=== PATIENT | male | born 1970 | race Caucasian/White ===

== ENCOUNTER 2018-09-12 20:41 | Emergency (ER) | payer OTHER ==
[2018-09-12] MEDS ORDERED: Ketorolac 60 MG/2 ML SDV IM ONE (21:01)
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
[2018-09-12 21:40] VITALS: BP 127/89
== END 2018-09-12 21:40 | disposition home or self-care (01) ==
LOC: MW.ED 20:41
DX: S16.1XXA Strain of muscle, fascia and tendon at neck level, initial encounter (principal); M79.18 Myalgia, other site; Z88.0 Allergy status to penicillin; V59.9XXA Occupant (driver) (passenger) of pick-up truck or van injured in unspecified traffic accident, initial encounter
CPT/HCPCS: 96372; 99283; J1885